=== PATIENT | male | born 1955 | race Caucasian/White ===

== ENCOUNTER 2018-08-08 03:39 | Inpatient (IN) | payer MEDICARE, MEDICAID ==
[~2018-08-08] VITALS: Ht 165.1 cm; Wt 66.7 kg
[2018-08-08] VITALS (60 sets, daily range): BP systolic 107–151; BP diastolic 53–110
[~2018-08-08 03:39] MED LIST: [UNRECOGNIZED DRUG - REMARK]
[2018-08-08 04:55] LABS: EOSINOPHILS % 1.6 % (0.0-5.0); HEMOGLOBIN. 11.7 g/dL (14.0-18.0); LYMPHOCYTES % 12.9 % (20.0-50.0); MEAN CORPUSCULAR HEMOGLOBIN 29.4 pg (28.0-32.0); MEAN CORPUSCULAR VOLUME 87.8 fL (80.0-94.0); MEAN PLATELET VOLUME 8.2 fl (7.4-10.4); MONOCYTES % 14.4 % (2.0-8.0); NEUTROPHILS % 70.1 % (40.0-76.0); PLATELET 168 x1000/uL (130-400); RED BLOOD CELL COUNT 3.99 mill/uL (4.7-6.1); RED CELL DISTRIBUTION WIDTH 17.3 % (11.6-14.6)
[2018-08-08 05:01] LABS: CHLORIDE 97 mEq/L (98-107); PROTHROMBIN TIME 10.7 sec (9.6-11.0)
[2018-08-08] MEDS ORDERED: PHYTONADIONE 10 MG in DEXTROSE 5% WATER 50 ML IV ONE (06:45)
[2018-08-08] MEDS ORDERED: NICARDIPINE 100 MG in SODIUM CHLORIDE 0.9% 60 ML IV PRN (07:15)
[2018-08-08] MEDS ORDERED: ONDANSETRON HCL 4MG/2ML INJ IV PRN ×2 (07:30→16:00)
[2018-08-08] MEDS ORDERED: ACETAMINOPHEN 325MG TABLET PO PRN (07:30)
[2018-08-08] MEDS ORDERED: LORAZEPAM 2MG/ML CPJ IV PRN (07:30)
[2018-08-08] MEDS ORDERED: POVIDONE-IODINE OINT 28.4GM TOP ONE (08:11)
[2018-08-08] MEDS ORDERED: THROMBIN (BOVINE) 5000 UNITS/VIAL TOP ONE ×2 (08:12→08:13)
[2018-08-08] MEDS ORDERED: BACITRACIN 15GM TUBE TOP ONE (08:12)
[2018-08-08] MEDS ORDERED: BACITRACIN 50,000 UNITS/VIAL ONE (08:13)
[2018-08-08] MEDS ORDERED: LIDOCAINE HCL/EPINEPHRINE 1%-EPI 1:100,000 20 ML VIAL ONE (08:13)
[2018-08-08] MEDS: AMLODIPINE 10MG TABLET PO SCH (09:00)
[2018-08-08] MEDS ORDERED: MORPHINE SULFATE 4 MG/ML CPJ (NOT FOR IM USE) IV PRN (09:15)
[2018-08-08] MEDS: NICARDIPINE 100 MG in SODIUM CHLORIDE 0.9% 60 ML IV PRN (09:15)
[2018-08-08] MEDS: DEXT 5%/LACTATED RINGERS 1,000 ML IV SCH (10:05)
[2018-08-08 10:06] LABS: T4 FREE 1.61 ng/dL (0.76-1.46)
[2018-08-08] MEDS: LEVETIRACETAM 500 MG in SODIUM CHLORIDE 0.9% 100 ML IV SCH ×2 (10:12→21:32)
[2018-08-08] MEDS ORDERED: DEXAMETHASONE 4MG/ML 1ML VIAL IV NR (10:15)
[2018-08-08] MEDS ORDERED: IPRATROPIUM/ALBUTEROL 0.5-3(2.5)MG/3ML NEB HHN PRN (11:15)
[2018-08-08] MEDS ORDERED: PANTOPRAZOLE SODIUM 40 MG/VIAL IV SCH (11:30)
[2018-08-08] MEDS: DEXAMETHASONE 4MG/ML 1ML VIAL IV SCH ×2 (12:44→17:43)
[2018-08-08] MEDS ORDERED: DEXTROSE 50% WATER 50ML SYRINGE IV PRN (15:00)
[2018-08-08] MEDS ORDERED: FENTANYL CITRATE/PF 50MCG/ML 2ML VIAL ONE (15:08)
[2018-08-08] MEDS ORDERED: PROPOFOL 200MG/20ML VIAL IV ONE (15:08)
[2018-08-08] MEDS ORDERED: ROCURONIUM BROMIDE 10MG/ML VIAL 5ML IV ONE (15:08)
[2018-08-08] MEDS ORDERED: HYDROMORPHONE HCL/PF 2MG/ML CPJ IV PRN ×2 (16:00)
[2018-08-08] MEDS ORDERED: LABETALOL HCL 20MG/4ML CARPUJECT IV PRN (16:00)
[2018-08-08 17:03] LABS: CREATINE KINASE MB FRACTION 1.5 ng/mL (0.5-3.6)
[2018-08-08] MEDS: BLOOD SUGAR DIAGNOSTIC STRIP TEST SCH ×2 (17:30→21:32)
[2018-08-08] MEDS: INSULIN LISPRO 100 UNITS/ML SUBCUT SCH ×2 (17:43→21:00)
[2018-08-08] MEDS ORDERED: ACETAMINOPHEN 500MG TABLET PO SCH (22:00)
[2018-08-08 23:11] LABS: CHLORIDE 100 mEq/L (98-107)
[2018-08-08 23:20] LABS: CREATINE KINASE 170 IU/L (39-308)
[2018-08-08 23:22] LABS: CREATINE KINASE MB FRACTION 1.5 ng/mL (0.5-3.6)
[2018-08-09] VITALS (106 sets, daily range): BP systolic 113–147; BP diastolic 49–73
[2018-08-09] MEDS: DEXT 5%/LACTATED RINGERS 1,000 ML IV SCH (01:18)
[2018-08-09] MEDS: DEXAMETHASONE 4MG/ML 1ML VIAL IV SCH ×3 (01:18→12:32)
[2018-08-09] MEDS ORDERED: FOLI-43 MT (02:42)
[2018-08-09] MEDS ORDERED: FURO40TA5 PO (02:42)
[2018-08-09] MEDS ORDERED: ASPI-1159 MT (02:42)
[2018-08-09] MEDS ORDERED: OMEP20CA10 MT (02:42)
[2018-08-09] MEDS ORDERED: CHLO50TA22 PO (02:42)
[2018-08-09] MEDS ORDERED: MINO10TA MT (02:42)
[2018-08-09] MEDS ORDERED: SEVE800T8 MT (02:42)
[2018-08-09] MEDS ORDERED: CALC667C MT (02:42)
[2018-08-09] MEDS: NICARDIPINE 100 MG in SODIUM CHLORIDE 0.9% 60 ML IV PRN (04:38)
[2018-08-09 05:23] LABS: BASOPHILS % 0.1 % (0.0-2.0); HEMATOCRIT. 35.5 % (42.0-52.0); HEMOGLOBIN. 11.8 g/dL (14.0-18.0); LYMPHOCYTES % 9.9 % (20.0-50.0); MEAN CORPUSCULAR HEMOGLOBIN 29.3 pg (28.0-32.0); MEAN CORPUSCULAR VOLUME 87.8 fL (80.0-94.0); MEAN PLATELET VOLUME 8.5 fl (7.4-10.4); MONOCYTES % 2.4 % (2.0-8.0); NEUTROPHILS % 87.6 % (40.0-76.0); PLATELET 219 x1000/uL (130-400); RED BLOOD CELL COUNT 4.04 mill/uL (4.7-6.1); RED CELL DISTRIBUTION WIDTH 17.3 % (11.6-14.6)
[2018-08-09 05:41] LABS: CREATINE KINASE 116 IU/L (39-308)
[2018-08-09 05:42] LABS: CHLORIDE 101 mEq/L (98-107)
[2018-08-09 05:43] LABS: CREATINE KINASE MB FRACTION 1.1 ng/mL (0.5-3.6)
[2018-08-09] MEDS: BLOOD SUGAR DIAGNOSTIC STRIP TEST SCH ×4 (06:18→21:00)
[2018-08-09] MEDS: INSULIN LISPRO 100 UNITS/ML SUBCUT SCH ×4 (06:30→21:32)
[2018-08-09] MEDS: AMLODIPINE 10MG TABLET PO SCH (08:33)
[2018-08-09] MEDS: PANTOPRAZOLE SODIUM 40 MG/VIAL IV SCH (08:33)
[2018-08-09] MEDS: CEFAZOLIN 1000MG PREMIX 50 ML IV SCH (08:34)
[2018-08-09] MEDS: LEVETIRACETAM 500 MG in SODIUM CHLORIDE 0.9% 100 ML IV SCH ×2 (08:48→22:31)
[2018-08-09] MEDS ORDERED: CEFAZOLIN SODIUM 1000MG/VIAL IV SCH (09:00)
[2018-08-10] VITALS (83 sets, daily range): BP systolic 108–151; BP diastolic 43–79
[2018-08-10] MEDS: NICARDIPINE 100 MG in SODIUM CHLORIDE 0.9% 60 ML IV PRN (04:49)
[2018-08-10 05:50] LABS: HEMATOCRIT. 35.9 % (42.0-52.0); HEMOGLOBIN. 11.8 g/dL (14.0-18.0); MEAN CORPUSCULAR HEMOGLOBIN 29.1 pg (28.0-32.0); MEAN CORPUSCULAR VOLUME 88.3 fL (80.0-94.0); MEAN PLATELET VOLUME 8.6 fl (7.4-10.4); PLATELET 278 x1000/uL (130-400); RED BLOOD CELL COUNT 4.07 mill/uL (4.7-6.1); RED CELL DISTRIBUTION WIDTH 17.4 % (11.6-14.6)
[2018-08-10] MEDS: BLOOD SUGAR DIAGNOSTIC STRIP TEST SCH ×4 (06:13→20:37)
[2018-08-10] MEDS: INSULIN LISPRO 100 UNITS/ML SUBCUT SCH ×4 (06:16→20:37)
[2018-08-10 06:50] LABS: PLATELET ESTIMATE NORMAL
[2018-08-10] MEDS: CEFAZOLIN 1000MG PREMIX 50 ML IV SCH (08:24)
[2018-08-10] MEDS: AMLODIPINE 10MG TABLET PO SCH (08:24)
[2018-08-10] MEDS: PANTOPRAZOLE SODIUM 40 MG/VIAL IV SCH (08:24)
[2018-08-10] MEDS: HYDROCODONE/ACETAMINOPHEN 5/325MG TABLET PO PRN (08:25)
[2018-08-10] MEDS: LOSARTAN POTASSIUM 50 MG TABLET PO SCH (11:35)
[2018-08-10] MEDS: LEVETIRACETAM 500 MG in SODIUM CHLORIDE 0.9% 100 ML IV SCH ×2 (13:41→20:37)
[2018-08-10] MEDS: DOCUSATE SODIUM 100MG CAPSULE PO SCH (16:05)
[2018-08-10] MEDS: DIPHENHYDRAMINE 25MG CAPSULE PO PRN ×2 (16:05→22:47)
[2018-08-11] VITALS (36 sets, daily range): BP systolic 100–131; BP diastolic 48–63
[2018-08-11] MEDS: HYDROCODONE/ACETAMINOPHEN 5/325MG TABLET PO PRN ×3 (04:32→17:43)
[2018-08-11 05:58] LABS: BASOPHILS % 0.2 % (0.0-2.0); HEMATOCRIT. 35.8 % (42.0-52.0); HEMOGLOBIN. 12.1 g/dL (14.0-18.0); LYMPHOCYTES % 8.1 % (20.0-50.0); MEAN CORPUSCULAR HEMOGLOBIN 29.8 pg (28.0-32.0); MEAN CORPUSCULAR VOLUME 88.2 fL (80.0-94.0); MEAN PLATELET VOLUME 7.9 fl (7.4-10.4); MONOCYTES % 10.7 % (2.0-8.0); PLATELET 293 x1000/uL (130-400); RED BLOOD CELL COUNT 4.05 mill/uL (4.7-6.1); RED CELL DISTRIBUTION WIDTH 17.3 % (11.6-14.6)
[2018-08-11] MEDS: BLOOD SUGAR DIAGNOSTIC STRIP TEST SCH ×4 (06:17→21:07)
[2018-08-11] MEDS: INSULIN LISPRO 100 UNITS/ML SUBCUT SCH ×4 (06:26→21:18)
[2018-08-11] MEDS: MORPHINE SULFATE 4 MG/ML CPJ (NOT FOR IM USE) IV PRN (06:35)
[2018-08-11] MEDS: DOCUSATE SODIUM 100MG CAPSULE PO SCH ×2 (08:41→17:27)
[2018-08-11] MEDS: AMLODIPINE 10MG TABLET PO SCH (08:41)
[2018-08-11] MEDS: LOSARTAN POTASSIUM 50 MG TABLET PO SCH (08:41)
[2018-08-11] MEDS: LEVETIRACETAM 500 MG in SODIUM CHLORIDE 0.9% 100 ML IV SCH ×2 (08:41→21:07)
[2018-08-11] MEDS: DIPHENHYDRAMINE 25MG CAPSULE PO PRN ×2 (08:41→17:43)
[2018-08-12] VITALS (39 sets, daily range): BP systolic 111–160; BP diastolic 56–88
[2018-08-12 05:34] LABS: HEMATOCRIT. 37.9 % (42.0-52.0); HEMOGLOBIN. 12.4 g/dL (14.0-18.0); MEAN CORPUSCULAR HEMOGLOBIN 29.2 pg (28.0-32.0); MEAN CORPUSCULAR VOLUME 89.1 fL (80.0-94.0); PLATELET 282 x1000/uL (130-400); RED BLOOD CELL COUNT 4.25 mill/uL (4.7-6.1); RED CELL DISTRIBUTION WIDTH 17.5 % (11.6-14.6)
[2018-08-12] MEDS: INSULIN LISPRO 100 UNITS/ML SUBCUT SCH ×4 (06:37→20:55)
[2018-08-12] MEDS: BLOOD SUGAR DIAGNOSTIC STRIP TEST SCH ×4 (06:37→20:55)
[2018-08-12 07:19] LABS: PLATELET ESTIMATE NORMAL
[2018-08-12] MEDS: AMLODIPINE 10MG TABLET PO SCH (09:09)
[2018-08-12] MEDS: DOCUSATE SODIUM 100MG CAPSULE PO SCH ×2 (09:09→17:00)
[2018-08-12] MEDS: LEVETIRACETAM 500 MG in SODIUM CHLORIDE 0.9% 100 ML IV SCH ×2 (09:09→20:43)
[2018-08-12] MEDS: LOSARTAN POTASSIUM 50 MG TABLET PO SCH (09:09)
[2018-08-12] MEDS: DIPHENHYDRAMINE 25MG CAPSULE PO PRN (22:19)
[2018-08-13] VITALS (11 sets, daily range): BP systolic 138–173; BP diastolic 61–118
[2018-08-13] MEDS: MORPHINE SULFATE 4 MG/ML CPJ (NOT FOR IM USE) IV PRN (02:07)
[2018-08-13] MEDS: CLONIDINE 0.1MG TABLET PO PRN ×2 (04:23→09:07)
[2018-08-13 05:39] LABS: HEMATOCRIT. 41.8 % (42.0-52.0); HEMOGLOBIN. 13.8 g/dL (14.0-18.0); MEAN CORPUSCULAR HEMOGLOBIN 29.4 pg (28.0-32.0); MEAN CORPUSCULAR VOLUME 88.6 fL (80.0-94.0); MEAN PLATELET VOLUME 8.1 fl (7.4-10.4); PLATELET 239 x1000/uL (130-400); RED BLOOD CELL COUNT 4.71 mill/uL (4.7-6.1); RED CELL DISTRIBUTION WIDTH 17.6 % (11.6-14.6)
[2018-08-13] MEDS: BLOOD SUGAR DIAGNOSTIC STRIP TEST SCH ×4 (07:20→21:00)
[2018-08-13] MEDS: INSULIN LISPRO 100 UNITS/ML SUBCUT SCH ×4 (07:50→23:50)
[2018-08-13] MEDS: LOSARTAN POTASSIUM 50 MG TABLET PO SCH (09:06)
[2018-08-13] MEDS: DOCUSATE SODIUM 100MG CAPSULE PO SCH ×2 (09:07→17:08)
[2018-08-13] MEDS: AMLODIPINE 10MG TABLET PO SCH (09:07)
[2018-08-13 09:11] LABS: PLATELET ESTIMATE NORMAL
[2018-08-13] MEDS: LEVETIRACETAM 500 MG in SODIUM CHLORIDE 0.9% 100 ML IV SCH ×2 (14:21→20:57)
[2018-08-14] VITALS: BP 153/67
[2018-08-14 04:00] VITALS: BP 156/55
[2018-08-14] MEDS: BLOOD SUGAR DIAGNOSTIC STRIP TEST SCH ×4 (06:24→21:00)
[2018-08-14 07:02] LABS: BASOPHILS % 0.4 % (0.0-2.0); EOSINOPHILS % 4.8 % (0.0-5.0); HEMATOCRIT. 37.3 % (42.0-52.0); HEMOGLOBIN. 12.4 g/dL (14.0-18.0); LYMPHOCYTES % 8.7 % (20.0-50.0); MEAN CORPUSCULAR HEMOGLOBIN 29.4 pg (28.0-32.0); MEAN CORPUSCULAR VOLUME 88.3 fL (80.0-94.0); MEAN PLATELET VOLUME 7.9 fl (7.4-10.4); MONOCYTES % 11.2 % (2.0-8.0); NEUTROPHILS % 74.9 % (40.0-76.0); PLATELET 267 x1000/uL (130-400); RED BLOOD CELL COUNT 4.22 mill/uL (4.7-6.1); RED CELL DISTRIBUTION WIDTH 17.5 % (11.6-14.6)
[2018-08-14] MEDS: INSULIN LISPRO 100 UNITS/ML SUBCUT SCH ×4 (07:20→21:20)
[2018-08-14 08:00] VITALS: BP 163/67
[2018-08-14] MEDS: DOCUSATE SODIUM 100MG CAPSULE PO SCH ×2 (08:43→16:35)
[2018-08-14] MEDS: CLONIDINE 0.1MG TABLET PO PRN ×2 (08:43→16:36)
[2018-08-14] MEDS: AMLODIPINE 10MG TABLET PO SCH (08:43)
[2018-08-14] MEDS: LOSARTAN POTASSIUM 50 MG TABLET PO SCH (08:43)
[2018-08-14] MEDS: LEVETIRACETAM 500 MG in SODIUM CHLORIDE 0.9% 100 ML IV SCH ×2 (09:10→20:56)
[2018-08-14] MEDS: HYDRALAZINE HCL 25MG TABLET PO SCH ×3 (09:27→21:14)
[2018-08-14 12:00] VITALS: BP 163/78
[2018-08-14 16:00] VITALS: BP 169/74
[2018-08-14 20:00] VITALS: BP 160/65
[2018-08-15] VITALS (7 sets, daily range): BP systolic 123–184; BP diastolic 60–76
[2018-08-15] MEDS: HYDRALAZINE HCL 25MG TABLET PO SCH (05:17)
[2018-08-15] MEDS: CLONIDINE 0.1MG TABLET PO PRN ×2 (06:29→14:32)
[2018-08-15 06:47] LABS: BASOPHILS % 0.5 % (0.0-2.0); EOSINOPHILS % 5.8 % (0.0-5.0); HEMATOCRIT. 38.6 % (42.0-52.0); HEMOGLOBIN. 12.9 g/dL (14.0-18.0); MEAN CORPUSCULAR HEMOGLOBIN 29.4 pg (28.0-32.0); MEAN CORPUSCULAR VOLUME 87.9 fL (80.0-94.0); MEAN PLATELET VOLUME 8.1 fl (7.4-10.4); MONOCYTES % 14.9 % (2.0-8.0); NEUTROPHILS % 69.8 % (40.0-76.0); PLATELET 243 x1000/uL (130-400); RED BLOOD CELL COUNT 4.39 mill/uL (4.7-6.1); RED CELL DISTRIBUTION WIDTH 17.7 % (11.6-14.6)
[2018-08-15] MEDS: BLOOD SUGAR DIAGNOSTIC STRIP TEST SCH ×4 (06:56→21:00)
[2018-08-15] MEDS: INSULIN LISPRO 100 UNITS/ML SUBCUT SCH ×4 (06:56→21:00)
[2018-08-15] MEDS: LEVETIRACETAM 500 MG in SODIUM CHLORIDE 0.9% 100 ML IV SCH ×2 (09:36→21:37)
[2018-08-15] MEDS: LOSARTAN POTASSIUM 50 MG TABLET PO SCH (09:36)
[2018-08-15] MEDS: DOCUSATE SODIUM 100MG CAPSULE PO SCH ×2 (09:36→16:20)
[2018-08-15] MEDS: AMLODIPINE 10MG TABLET PO SCH (09:36)
[2018-08-15] MEDS: HYDRALAZINE HCL 50MG TABLET PO SCH ×2 (14:32→22:10)
[2018-08-16] VITALS: BP 171/66
[2018-08-16] MEDS: CLONIDINE 0.1MG TABLET PO PRN (00:36)
[2018-08-16 04:00] VITALS: BP 107/68
[2018-08-16] MEDS: HYDRALAZINE HCL 50MG TABLET PO SCH (05:56)
[2018-08-16] MEDS: BLOOD SUGAR DIAGNOSTIC STRIP TEST SCH ×2 (06:27→11:35)
[2018-08-16] MEDS: INSULIN LISPRO 100 UNITS/ML SUBCUT SCH ×2 (07:50→11:36)
[2018-08-16 08:00] VITALS: BP 161/71
[2018-08-16] MEDS: LEVETIRACETAM 500 MG in SODIUM CHLORIDE 0.9% 100 ML IV SCH (08:39)
[2018-08-16] MEDS: AMLODIPINE 10MG TABLET PO SCH (08:40)
[2018-08-16] MEDS: DOCUSATE SODIUM 100MG CAPSULE PO SCH (08:40)
[2018-08-16] MEDS: LOSARTAN POTASSIUM 50 MG TABLET PO SCH (08:40)
[2018-08-16] MEDS ORDERED: LEVETIRACETAM 500MG TABLET PO SCH (11:30)
[2018-08-16 11:43] VITALS: BP 147/99
[2018-08-16 12:00] VITALS: BP 147/99
[2018-08-16] MEDS ORDERED: HYDRALAZINE HCL 50MG TABLET PO SCH (14:00)
[2018-08-16] MEDS ORDERED: ATORVASTATIN CALCIUM 10MG TABLET PO SCH (21:00)
== END 2018-08-16 16:20 | DRG 25 ==
LOC: ER 03:39 → MICUSO 06:32 → SUPCPDRO 07:23 → ENRESERV 07:32 → 6EST 08-13 06:00
PROVIDERS: ADMIT Hospitalist; ATTEND Hospitalist
PROC: 00U207Z Supplement Dura Mater with Autologous Tissue Substitute, Open Approach (ICD-10-PCS; principal; 2018-08-08)
PROC: 0NU007Z Supplement Skull with Autologous Tissue Substitute, Open Approach (ICD-10-PCS; 2018-08-08)
PROC: 00C40ZZ Extirpation of Matter from Intracranial Subdural Space, Open Approach (ICD-10-PCS; 2018-08-08)
PROC: 4A103BD Monitoring of Intracranial Pressure, Percutaneous Approach (ICD-10-PCS; 2018-08-08)
PROC: 5A1D70Z Performance of Urinary Filtration, Intermittent, Less than 6 Hours Per Day (ICD-10-PCS; 2018-08-08)
PROC: 5A1D70Z Performance of Urinary Filtration, Intermittent, Less than 6 Hours Per Day (ICD-10-PCS; 2018-08-10)
PROC: 5A1D70Z Performance of Urinary Filtration, Intermittent, Less than 6 Hours Per Day (ICD-10-PCS; 2018-08-12)
PROC: 5A1D70Z Performance of Urinary Filtration, Intermittent, Less than 6 Hours Per Day (ICD-10-PCS; 2018-08-14)
PROC: 5A1D70Z Performance of Urinary Filtration, Intermittent, Less than 6 Hours Per Day (ICD-10-PCS; 2018-08-16)
DX: I62.01 Nontraumatic acute subdural hemorrhage (principal); I50.33 Acute on chronic diastolic (congestive) heart failure; N18.6 End stage renal disease; G93.40 Encephalopathy, unspecified; I69.354 Hemiplegia and hemiparesis following cerebral infarction affecting left non-dominant side; E87.1 Hypo-osmolality and hyponatremia; G40.89 Other seizures; I13.2 Hypertensive heart and chronic kidney disease with heart failure and with stage 5 chronic kidney disease, or end stage renal disease; D64.9 Anemia, unspecified; E11.22 Type 2 diabetes mellitus with diabetic chronic kidney disease; E78.1 Pure hyperglyceridemia; I62.03 Nontraumatic chronic subdural hemorrhage; R47.01 Aphasia; R62.7 Adult failure to thrive; Z79.899 Other long term (current) drug therapy; I25.2 Old myocardial infarction; Z99.2 Dependence on renal dialysis
CPT/HCPCS: 36415; 71045; 80048; 80061; 82550; 82553; 82962; 83036; 83605; 83880; 84439; 84443; 84484; 85379; 92610; 93005; 93306; 93970; 97112; 97163; 97166; 97530; 99291; C1713; C9113; J0690; J1100; J1815; J1953; J2270; J2704; J3010; J3430; J3490; J7050; J7060; J7120; Q0163; A4315

== ENCOUNTER 2018-08-16 16:25 | Inpatient (IN) | payer MEDICARE, MEDICAID ==
[~2018-08-16] VITALS: Ht 165.1 cm; Wt 66.7 kg
[~2018-08-16 16:25] MED LIST changes: +ASPI-1159 MT; +CALC667C MT; +CHLO50TA22 PO; +FOLI-43 MT; +FURO40TA5 PO; +MINO10TA MT; +OMEP20CA10 MT; +SEVE800T8 MT
[2018-08-16] MEDS ORDERED: IPRATROPIUM/ALBUTEROL 0.5-3(2.5)MG/3ML NEB HHN PRN (18:45)
[2018-08-16] MEDS ORDERED: DEXTROSE 50% WATER 50ML SYRINGE IV PRN (18:45)
[2018-08-16] MEDS ORDERED: ACETAMINOPHEN 650MG/20.3ML UDC PO PRN (19:00)
[2018-08-16] MEDS ORDERED: ONDANSETRON HCL 4MG/2ML INJ IV PRN (19:00)
[2018-08-16 20:00] VITALS: BP 136/73
[2018-08-16] MEDS: CLONIDINE 0.1MG TABLET PO PRN (21:40)
[2018-08-16] MEDS: ATORVASTATIN CALCIUM 10MG TABLET PO SCH (21:40)
[2018-08-16] MEDS: LEVETIRACETAM 500MG TABLET PO SCH (21:40)
[2018-08-16] MEDS: BLOOD SUGAR DIAGNOSTIC STRIP TEST SCH (21:41)
[2018-08-16] MEDS: INSULIN LISPRO 100 UNITS/ML SUBCUT SCH (21:45)
[2018-08-16 22:00] VITALS: BP 165/67
[2018-08-16] MEDS ORDERED: HYDRALAZINE HCL 50MG TABLET PO SCH (22:00)
[2018-08-16] MEDS ORDERED: HYDRALAZINE HCL 25MG TABLET PO NR (22:45)
[2018-08-17] VITALS: BP 158/60
[2018-08-17] MEDS: BLOOD SUGAR DIAGNOSTIC STRIP TEST SCH ×4 (05:34→20:32)
[2018-08-17] MEDS ORDERED: HYDRALAZINE HCL 50MG TABLET PO SCH (06:00)
[2018-08-17] MEDS: CLONIDINE 0.1MG TABLET PO PRN ×2 (06:46→09:09)
[2018-08-17 08:27] VITALS: BP 196/68
[2018-08-17] MEDS: LEVETIRACETAM 500MG TABLET PO SCH ×2 (09:00→20:31)
[2018-08-17] MEDS: INSULIN LISPRO 100 UNITS/ML SUBCUT SCH ×4 (09:00→20:32)
[2018-08-17] MEDS: LOSARTAN POTASSIUM 50 MG TABLET PO SCH (09:01)
[2018-08-17] MEDS: DOCUSATE SODIUM 100MG CAPSULE PO SCH ×2 (09:01→17:11)
[2018-08-17] MEDS: AMLODIPINE 10MG TABLET PO SCH (09:02)
[2018-08-17] MEDS ORDERED: HYDRALAZINE HCL 25MG TABLET PO SCH (10:30)
[2018-08-17] MEDS ORDERED: HYDRALAZINE HCL 100MG TABLET PO SCH (10:30)
[2018-08-17] MEDS: HYDRALAZINE HCL 100MG TABLET PO SCH ×2 (14:00→20:32)
[2018-08-17 20:30] VITALS: BP 156/57
[2018-08-17] MEDS: ATORVASTATIN CALCIUM 10MG TABLET PO SCH (20:31)
[2018-08-18] MEDS: BLOOD SUGAR DIAGNOSTIC STRIP TEST SCH ×4 (05:35→20:44)
[2018-08-18] MEDS: HYDRALAZINE HCL 100MG TABLET PO SCH ×3 (05:35→20:47)
[2018-08-18 06:48] LABS: BASOPHILS % 1.3 % (0.0-2.0); EOSINOPHILS % 5.1 % (0.0-5.0); HEMOGLOBIN. 12.1 g/dL (14.0-18.0); LYMPHOCYTES % 9.2 % (20.0-50.0); MEAN CORPUSCULAR HEMOGLOBIN 29.9 pg (28.0-32.0); MEAN CORPUSCULAR VOLUME 89.4 fL (80.0-94.0); MONOCYTES % 14.2 % (2.0-8.0); NEUTROPHILS % 70.2 % (40.0-76.0); RED BLOOD CELL COUNT 4.03 mill/uL (4.7-6.1); RED CELL DISTRIBUTION WIDTH 17.7 % (11.6-14.6)
[2018-08-18 08:00] VITALS: BP 144/53
[2018-08-18] MEDS: INSULIN LISPRO 100 UNITS/ML SUBCUT SCH ×4 (09:00→20:59)
[2018-08-18 09:19] LABS: MEAN PLATELET VOLUME 8.4 fl (7.4-10.4); PLATELET 120 x1000/uL (130-400)
[2018-08-18] MEDS: DOCUSATE SODIUM 100MG CAPSULE PO SCH ×2 (10:04→17:32)
[2018-08-18] MEDS: LOSARTAN POTASSIUM 50 MG TABLET PO SCH (10:04)
[2018-08-18] MEDS: AMLODIPINE 10MG TABLET PO SCH (10:04)
[2018-08-18] MEDS: LEVETIRACETAM 500MG TABLET PO SCH ×2 (10:05→20:44)
[2018-08-18 20:00] VITALS: BP 171/69
[2018-08-18] MEDS: ATORVASTATIN CALCIUM 10MG TABLET PO SCH (20:44)
[2018-08-19] MEDS: BLOOD SUGAR DIAGNOSTIC STRIP TEST SCH ×4 (06:28→21:00)
[2018-08-19] MEDS: INSULIN LISPRO 100 UNITS/ML SUBCUT SCH ×4 (06:28→21:00)
[2018-08-19] MEDS: HYDRALAZINE HCL 100MG TABLET PO SCH ×3 (06:28→22:06)
[2018-08-19 08:00] VITALS: BP 163/69
[2018-08-19] MEDS: DOCUSATE SODIUM 100MG CAPSULE PO SCH ×2 (09:00→17:00)
[2018-08-19] MEDS: LEVETIRACETAM 500MG TABLET PO SCH ×2 (09:24→22:05)
[2018-08-19] MEDS: LOSARTAN POTASSIUM 50 MG TABLET PO SCH (09:24)
[2018-08-19] MEDS: AMLODIPINE 10MG TABLET PO SCH (09:24)
[2018-08-19 14:58] VITALS: BP 156/67
[2018-08-19 18:27] LABS: BASOPHILS % 1.3 % (0.0-2.0); EOSINOPHILS % 4.4 % (0.0-5.0); HEMOGLOBIN. 13.1 g/dL (14.0-18.0); MEAN CORPUSCULAR HEMOGLOBIN 29.8 pg (28.0-32.0); MEAN CORPUSCULAR VOLUME 88.9 fL (80.0-94.0); MEAN PLATELET VOLUME 8.1 fl (7.4-10.4); MONOCYTES % 12.3 % (2.0-8.0); PLATELET 162 x1000/uL (130-400); RED BLOOD CELL COUNT 4.39 mill/uL (4.7-6.1); RED CELL DISTRIBUTION WIDTH 17.4 % (11.6-14.6)
[2018-08-19 20:00] VITALS: BP 149/59
[2018-08-19] MEDS: ATORVASTATIN CALCIUM 10MG TABLET PO SCH (22:05)
[2018-08-20] MEDS: HYDRALAZINE HCL 100MG TABLET PO SCH ×3 (07:07→21:02)
[2018-08-20] MEDS: BLOOD SUGAR DIAGNOSTIC STRIP TEST SCH ×4 (07:09→21:50)
[2018-08-20 07:20] LABS: BASOPHILS % 1.2 % (0.0-2.0); EOSINOPHILS % 4.8 % (0.0-5.0); HEMOGLOBIN. 11.9 g/dL (14.0-18.0); LYMPHOCYTES % 10.9 % (20.0-50.0); MEAN CORPUSCULAR HEMOGLOBIN 29.2 pg (28.0-32.0); MEAN CORPUSCULAR VOLUME 88.5 fL (80.0-94.0); MEAN PLATELET VOLUME 8.3 fl (7.4-10.4); MONOCYTES % 12.4 % (2.0-8.0); NEUTROPHILS % 70.7 % (40.0-76.0); PLATELET 178 x1000/uL (130-400); RED BLOOD CELL COUNT 4.07 mill/uL (4.7-6.1); RED CELL DISTRIBUTION WIDTH 17.4 % (11.6-14.6)
[2018-08-20 08:00] VITALS: BP 164/63
[2018-08-20] MEDS: INSULIN LISPRO 100 UNITS/ML SUBCUT SCH ×4 (09:00→21:00)
[2018-08-20] MEDS: LOSARTAN POTASSIUM 50 MG TABLET PO SCH (09:23)
[2018-08-20] MEDS: DOCUSATE SODIUM 100MG CAPSULE PO SCH ×2 (09:23→17:00)
[2018-08-20] MEDS: AMLODIPINE 10MG TABLET PO SCH (09:23)
[2018-08-20] MEDS: LEVETIRACETAM 500MG TABLET PO SCH ×2 (09:23→21:02)
[2018-08-20 20:00] VITALS: BP 145/69
[2018-08-20] MEDS: ATORVASTATIN CALCIUM 10MG TABLET PO SCH (21:02)
[2018-08-21] MEDS: HYDRALAZINE HCL 100MG TABLET PO SCH ×3 (06:02→21:05)
[2018-08-21 06:35] LABS: BASOPHILS % 1.5 % (0.0-2.0); EOSINOPHILS % 4.4 % (0.0-5.0); HEMATOCRIT. 37.3 % (42.0-52.0); HEMOGLOBIN. 12.6 g/dL (14.0-18.0); LYMPHOCYTES % 7.7 % (20.0-50.0); MEAN CORPUSCULAR HEMOGLOBIN 29.5 pg (28.0-32.0); MEAN CORPUSCULAR VOLUME 87.4 fL (80.0-94.0); MEAN PLATELET VOLUME 8.2 fl (7.4-10.4); MONOCYTES % 13.9 % (2.0-8.0); NEUTROPHILS % 72.5 % (40.0-76.0); PLATELET 175 x1000/uL (130-400); RED BLOOD CELL COUNT 4.26 mill/uL (4.7-6.1); RED CELL DISTRIBUTION WIDTH 17.7 % (11.6-14.6)
[2018-08-21] MEDS: BLOOD SUGAR DIAGNOSTIC STRIP TEST SCH ×4 (06:39→21:06)
[2018-08-21] MEDS: INSULIN LISPRO 100 UNITS/ML SUBCUT SCH ×4 (06:42→21:00)
[2018-08-21 07:35] VITALS: BP 162/63
[2018-08-21] MEDS: AMLODIPINE 10MG TABLET PO SCH (08:24)
[2018-08-21] MEDS: DOCUSATE SODIUM 100MG CAPSULE PO SCH ×2 (08:25→16:22)
[2018-08-21] MEDS: LOSARTAN POTASSIUM 50 MG TABLET PO SCH (08:25)
[2018-08-21] MEDS: LEVETIRACETAM 500MG TABLET PO SCH ×2 (08:25→21:05)
[2018-08-21] MEDS: DIPHENHYDRAMINE 25MG CAPSULE PO PRN (08:50)
[2018-08-21] MEDS: NEOMY SULF/BACITRAC ZN/POLY OINT 28GM TOP SCH ×2 (13:38→21:06)
[2018-08-21 21:00] VITALS: BP 167/67
[2018-08-21] MEDS: ATORVASTATIN CALCIUM 10MG TABLET PO SCH (21:05)
[2018-08-22] MEDS: INSULIN LISPRO 100 UNITS/ML SUBCUT SCH ×4 (05:38→21:00)
[2018-08-22] MEDS: HYDRALAZINE HCL 100MG TABLET PO SCH ×3 (05:38→21:10)
[2018-08-22] MEDS: BLOOD SUGAR DIAGNOSTIC STRIP TEST SCH ×4 (05:38→21:11)
[2018-08-22 06:30] VITALS: BP 140/62
[2018-08-22 08:00] VITALS: BP 154/59
[2018-08-22] MEDS: LOSARTAN POTASSIUM 50 MG TABLET PO SCH (08:51)
[2018-08-22] MEDS: DOCUSATE SODIUM 100MG CAPSULE PO SCH ×2 (08:51→16:36)
[2018-08-22] MEDS: AMLODIPINE 10MG TABLET PO SCH (08:52)
[2018-08-22] MEDS: LEVETIRACETAM 500MG TABLET PO SCH ×2 (08:52→21:10)
[2018-08-22] MEDS: NEOMY SULF/BACITRAC ZN/POLY OINT 28GM TOP SCH ×2 (11:59→21:11)
[2018-08-22 20:00] VITALS: BP 122/71
[2018-08-22] MEDS: ATORVASTATIN CALCIUM 10MG TABLET PO SCH (21:09)
[2018-08-23] MEDS: HYDRALAZINE HCL 100MG TABLET PO SCH ×3 (05:35→21:03)
[2018-08-23] MEDS: BLOOD SUGAR DIAGNOSTIC STRIP TEST SCH ×4 (05:35→21:03)
[2018-08-23] MEDS: INSULIN LISPRO 100 UNITS/ML SUBCUT SCH ×4 (05:40→21:00)
[2018-08-23 06:56] LABS: BASOPHILS % 2.1 % (0.0-2.0); EOSINOPHILS % 4.9 % (0.0-5.0); HEMATOCRIT. 35.7 % (42.0-52.0); HEMOGLOBIN. 11.8 g/dL (14.0-18.0); LYMPHOCYTES % 10.7 % (20.0-50.0); MEAN CORPUSCULAR HEMOGLOBIN 29.2 pg (28.0-32.0); MEAN CORPUSCULAR VOLUME 88.2 fL (80.0-94.0); MEAN PLATELET VOLUME 7.9 fl (7.4-10.4); MONOCYTES % 9.2 % (2.0-8.0); NEUTROPHILS % 73.1 % (40.0-76.0); PLATELET 156 x1000/uL (130-400); RED BLOOD CELL COUNT 4.05 mill/uL (4.7-6.1); RED CELL DISTRIBUTION WIDTH 17.1 % (11.6-14.6)
[2018-08-23 08:00] VITALS: BP 166/57
[2018-08-23] MEDS: DOCUSATE SODIUM 100MG CAPSULE PO SCH ×2 (08:34→16:52)
[2018-08-23] MEDS: NEOMY SULF/BACITRAC ZN/POLY OINT 28GM TOP SCH ×2 (08:34→21:06)
[2018-08-23] MEDS: LEVETIRACETAM 500MG TABLET PO SCH ×2 (08:34→21:02)
[2018-08-23] MEDS: AMLODIPINE 10MG TABLET PO SCH (09:34)
[2018-08-23] MEDS: LOSARTAN POTASSIUM 50 MG TABLET PO SCH (09:34)
[2018-08-23 20:00] VITALS: BP 139/67
[2018-08-23] MEDS: ATORVASTATIN CALCIUM 10MG TABLET PO SCH (21:03)
[2018-08-23] MEDS ORDERED: BISACODYL 10MG SUPP PR PRN (22:00)
[2018-08-23] MEDS: BISACODYL 5MG TABLET PO PRN (22:19)
[2018-08-24] MEDS: HYDRALAZINE HCL 100MG TABLET PO SCH ×3 (05:31→21:50)
[2018-08-24] MEDS: BLOOD SUGAR DIAGNOSTIC STRIP TEST SCH ×4 (05:31→21:51)
[2018-08-24] MEDS: INSULIN LISPRO 100 UNITS/ML SUBCUT SCH ×4 (05:40→21:00)
[2018-08-24 06:36] LABS: HEMATOCRIT. 36.9 % (42.0-52.0); HEMOGLOBIN. 12.2 g/dL (14.0-18.0); MEAN CORPUSCULAR HEMOGLOBIN 29.1 pg (28.0-32.0); MEAN CORPUSCULAR VOLUME 88.2 fL (80.0-94.0); MEAN PLATELET VOLUME 8.1 fl (7.4-10.4); PLATELET 152 x1000/uL (130-400); RED BLOOD CELL COUNT 4.19 mill/uL (4.7-6.1); RED CELL DISTRIBUTION WIDTH 17.4 % (11.6-14.6)
[2018-08-24 08:47] VITALS: BP 168/63
[2018-08-24] MEDS: DOCUSATE SODIUM 100MG CAPSULE PO SCH ×2 (08:59→16:49)
[2018-08-24] MEDS: LEVETIRACETAM 500MG TABLET PO SCH ×2 (08:59→21:50)
[2018-08-24] MEDS: AMLODIPINE 10MG TABLET PO SCH (08:59)
[2018-08-24] MEDS: NEOMY SULF/BACITRAC ZN/POLY OINT 28GM TOP SCH ×2 (08:59→21:52)
[2018-08-24] MEDS: LOSARTAN POTASSIUM 50 MG TABLET PO SCH (08:59)
[2018-08-24 17:55] LABS: PLATELET ESTIMATE NORMAL
[2018-08-24 20:00] VITALS: BP 148/67
[2018-08-24] MEDS: ATORVASTATIN CALCIUM 10MG TABLET PO SCH (21:50)
[2018-08-25] MEDS: HYDRALAZINE HCL 100MG TABLET PO SCH ×3 (05:48→21:46)
[2018-08-25] MEDS: BLOOD SUGAR DIAGNOSTIC STRIP TEST SCH ×4 (05:49→21:15)
[2018-08-25 06:46] LABS: BASOPHILS % 1.2 % (0.0-2.0); EOSINOPHILS % 5.1 % (0.0-5.0); HEMATOCRIT. 39.8 % (42.0-52.0); HEMOGLOBIN. 13.3 g/dL (14.0-18.0); LYMPHOCYTES % 12.2 % (20.0-50.0); MEAN CORPUSCULAR HEMOGLOBIN 29.5 pg (28.0-32.0); MEAN PLATELET VOLUME 8.1 fl (7.4-10.4); MONOCYTES % 11.5 % (2.0-8.0); PLATELET 146 x1000/uL (130-400); RED BLOOD CELL COUNT 4.52 mill/uL (4.7-6.1); RED CELL DISTRIBUTION WIDTH 17.1 % (11.6-14.6)
[2018-08-25] MEDS: INSULIN LISPRO 100 UNITS/ML SUBCUT SCH ×4 (07:57→21:00)
[2018-08-25] MEDS: LOSARTAN POTASSIUM 50 MG TABLET PO SCH (08:15)
[2018-08-25] MEDS: LEVETIRACETAM 500MG TABLET PO SCH ×2 (08:15→20:41)
[2018-08-25] MEDS: AMLODIPINE 10MG TABLET PO SCH (08:16)
[2018-08-25] MEDS: DOCUSATE SODIUM 100MG CAPSULE PO SCH ×2 (08:16→16:44)
[2018-08-25 08:23] VITALS: BP 172/76
[2018-08-25] MEDS: NEOMY SULF/BACITRAC ZN/POLY OINT 28GM TOP SCH ×2 (09:00→20:41)
[2018-08-25 10:00] VITALS: BP 138/68
[2018-08-25 20:00] VITALS: BP 181/67
[2018-08-25] MEDS: ATORVASTATIN CALCIUM 10MG TABLET PO SCH (20:40)
[2018-08-25] MEDS: CLONIDINE 0.1MG TABLET PO PRN (20:40)
[2018-08-25 21:46] VITALS: BP 156/48
[2018-08-26] MEDS: HYDRALAZINE HCL 100MG TABLET PO SCH ×4 (05:31→23:12)
[2018-08-26] MEDS: BLOOD SUGAR DIAGNOSTIC STRIP TEST SCH ×4 (06:07→21:00)
[2018-08-26] MEDS: INSULIN LISPRO 100 UNITS/ML SUBCUT SCH ×4 (06:31→21:00)
[2018-08-26 08:00] VITALS: BP 149/59
[2018-08-26] MEDS: LEVETIRACETAM 500MG TABLET PO SCH ×2 (08:46→23:12)
[2018-08-26] MEDS: LOSARTAN POTASSIUM 50 MG TABLET PO SCH (08:46)
[2018-08-26] MEDS: DOCUSATE SODIUM 100MG CAPSULE PO SCH ×2 (08:46→17:25)
[2018-08-26] MEDS: NEOMY SULF/BACITRAC ZN/POLY OINT 28GM TOP SCH ×2 (08:46→21:00)
[2018-08-26] MEDS: AMLODIPINE 10MG TABLET PO SCH (08:46)
[2018-08-26 20:00] VITALS: BP 149/44
[2018-08-26] MEDS: ATORVASTATIN CALCIUM 10MG TABLET PO SCH (23:12)
[2018-08-27 06:24] LABS: BASOPHILS % 1.8 % (0.0-2.0); EOSINOPHILS % 6.9 % (0.0-5.0); HEMATOCRIT. 35.3 % (42.0-52.0); HEMOGLOBIN. 11.8 g/dL (14.0-18.0); MEAN PLATELET VOLUME 7.9 fl (7.4-10.4); MONOCYTES % 11.5 % (2.0-8.0); NEUTROPHILS % 67.8 % (40.0-76.0); PLATELET 154 x1000/uL (130-400); RED BLOOD CELL COUNT 4.06 mill/uL (4.7-6.1)
[2018-08-27] MEDS: HYDRALAZINE HCL 100MG TABLET PO SCH ×3 (06:25→22:31)
[2018-08-27] MEDS: BLOOD SUGAR DIAGNOSTIC STRIP TEST SCH ×4 (06:30→21:00)
[2018-08-27 08:03] VITALS: BP 164/60
[2018-08-27] MEDS: INSULIN LISPRO 100 UNITS/ML SUBCUT SCH ×4 (09:00→21:00)
[2018-08-27] MEDS: NEOMY SULF/BACITRAC ZN/POLY OINT 28GM TOP SCH ×2 (09:00→23:01)
[2018-08-27] MEDS: LEVETIRACETAM 500MG TABLET PO SCH ×2 (09:12→22:30)
[2018-08-27] MEDS: LOSARTAN POTASSIUM 50 MG TABLET PO SCH (09:12)
[2018-08-27] MEDS: DOCUSATE SODIUM 100MG CAPSULE PO SCH ×2 (09:12→16:36)
[2018-08-27] MEDS: BISACODYL 5MG TABLET PO PRN (09:12)
[2018-08-27] MEDS: AMLODIPINE 10MG TABLET PO SCH (09:13)
[2018-08-27 20:00] VITALS: BP 149/67
[2018-08-27] MEDS: ATORVASTATIN CALCIUM 10MG TABLET PO SCH (22:30)
[2018-08-28] MEDS: HYDRALAZINE HCL 100MG TABLET PO SCH ×3 (06:36→21:36)
[2018-08-28] MEDS: BLOOD SUGAR DIAGNOSTIC STRIP TEST SCH ×4 (07:28→21:00)
[2018-08-28 08:10] VITALS: BP 149/61
[2018-08-28] MEDS: INSULIN LISPRO 100 UNITS/ML SUBCUT SCH ×4 (09:00→21:00)
[2018-08-28] MEDS: DOCUSATE SODIUM 100MG CAPSULE PO SCH ×2 (09:00→16:09)
[2018-08-28] MEDS: LEVETIRACETAM 500MG TABLET PO SCH ×2 (09:04→21:36)
[2018-08-28] MEDS: AMLODIPINE 10MG TABLET PO SCH (09:04)
[2018-08-28] MEDS: LOSARTAN POTASSIUM 50 MG TABLET PO SCH (09:04)
[2018-08-28] MEDS: NEOMY SULF/BACITRAC ZN/POLY OINT 28GM TOP SCH ×2 (09:05→21:36)
[2018-08-28] MEDS: DIPHENHYDRAMINE 25MG CAPSULE PO PRN (14:54)
[2018-08-28 20:00] VITALS: BP 152/57
[2018-08-28] MEDS: ATORVASTATIN CALCIUM 10MG TABLET PO SCH (21:36)
[2018-08-29] MEDS: HYDRALAZINE HCL 100MG TABLET PO SCH ×3 (06:17→20:29)
[2018-08-29] MEDS: BLOOD SUGAR DIAGNOSTIC STRIP TEST SCH ×4 (06:30→20:31)
[2018-08-29] MEDS: INSULIN LISPRO 100 UNITS/ML SUBCUT SCH ×4 (07:50→20:31)
[2018-08-29 08:03] VITALS: BP 129/38
[2018-08-29] MEDS: LEVETIRACETAM 500MG TABLET PO SCH ×2 (08:14→20:29)
[2018-08-29] MEDS: DOCUSATE SODIUM 100MG CAPSULE PO SCH ×2 (08:14→16:18)
[2018-08-29] MEDS: LOSARTAN POTASSIUM 50 MG TABLET PO SCH (08:15)
[2018-08-29] MEDS: AMLODIPINE 10MG TABLET PO SCH (08:15)
[2018-08-29] MEDS: NEOMY SULF/BACITRAC ZN/POLY OINT 28GM TOP SCH ×2 (08:16→20:35)
[2018-08-29 20:00] VITALS: BP 170/74
[2018-08-29] MEDS: ATORVASTATIN CALCIUM 10MG TABLET PO SCH (20:29)
[2018-08-30] MEDS: CLONIDINE 0.1MG TABLET PO PRN (05:30)
[2018-08-30] MEDS: HYDRALAZINE HCL 100MG TABLET PO SCH ×2 (05:30→13:26)
[2018-08-30] MEDS: BLOOD SUGAR DIAGNOSTIC STRIP TEST SCH ×4 (05:30→21:00)
[2018-08-30 06:09] LABS: HEMATOCRIT. 34.9 % (42.0-52.0); HEMOGLOBIN. 11.5 g/dL (14.0-18.0); MEAN CORPUSCULAR HEMOGLOBIN 28.4 pg (28.0-32.0); MEAN CORPUSCULAR VOLUME 86.5 fL (80.0-94.0); MEAN PLATELET VOLUME 8.1 fl (7.4-10.4); PLATELET 175 x1000/uL (130-400); RED BLOOD CELL COUNT 4.03 mill/uL (4.7-6.1); RED CELL DISTRIBUTION WIDTH 17.1 % (11.6-14.6)
[2018-08-30 08:00] VITALS: BP 169/62
[2018-08-30] MEDS: INSULIN LISPRO 100 UNITS/ML SUBCUT SCH ×4 (09:00→21:00)
[2018-08-30] MEDS: AMLODIPINE 10MG TABLET PO SCH ×2 (09:03→09:05)
[2018-08-30] MEDS: DOCUSATE SODIUM 100MG CAPSULE PO SCH ×2 (09:04→17:06)
[2018-08-30] MEDS: LEVETIRACETAM 500MG TABLET PO SCH ×2 (09:04→21:29)
[2018-08-30] MEDS: NEOMY SULF/BACITRAC ZN/POLY OINT 28GM TOP SCH (09:05)
[2018-08-30] MEDS: LOSARTAN POTASSIUM 50 MG TABLET PO SCH (10:15)
[2018-08-30 13:52] LABS: PLATELET ESTIMATE NORMAL
[2018-08-30 20:00] VITALS: BP 150/61
[2018-08-30] MEDS: ATORVASTATIN CALCIUM 10MG TABLET PO SCH (21:29)
[2018-08-31] MEDS: HYDRALAZINE HCL 100MG TABLET PO SCH ×4 (01:22→21:47)
[2018-08-31] MEDS: NEOMY SULF/BACITRAC ZN/POLY OINT 28GM TOP SCH ×3 (01:22→20:20)
[2018-08-31] MEDS: DIPHENHYDRAMINE 25MG CAPSULE PO PRN (05:33)
[2018-08-31] MEDS: BLOOD SUGAR DIAGNOSTIC STRIP TEST SCH ×4 (06:00→21:00)
[2018-08-31 06:05] LABS: HEMATOCRIT. 34.7 % (42.0-52.0); HEMOGLOBIN. 11.3 g/dL (14.0-18.0); MEAN CORPUSCULAR HEMOGLOBIN 28.4 pg (28.0-32.0); MEAN CORPUSCULAR VOLUME 86.9 fL (80.0-94.0); MEAN PLATELET VOLUME 8.1 fl (7.4-10.4); PLATELET 171 x1000/uL (130-400); RED BLOOD CELL COUNT 3.99 mill/uL (4.7-6.1); RED CELL DISTRIBUTION WIDTH 16.9 % (11.6-14.6)
[2018-08-31] MEDS: INSULIN LISPRO 100 UNITS/ML SUBCUT SCH ×4 (08:08→21:00)
[2018-08-31 08:36] VITALS: BP 130/47
[2018-08-31] MEDS: DOCUSATE SODIUM 100MG CAPSULE PO SCH ×2 (09:04→17:36)
[2018-08-31] MEDS: LOSARTAN POTASSIUM 50 MG TABLET PO SCH (09:04)
[2018-08-31] MEDS: LEVETIRACETAM 500MG TABLET PO SCH ×2 (09:04→20:10)
[2018-08-31 10:14] LABS: PLATELET ESTIMATE NORMAL
[2018-08-31 20:00] VITALS: BP 172/70
[2018-08-31] MEDS: ATORVASTATIN CALCIUM 10MG TABLET PO SCH (20:15)
[2018-08-31] MEDS: CLONIDINE 0.1MG TABLET PO PRN (20:15)
[2018-09-01 06:09] LABS: HEMATOCRIT. 35.5 % (42.0-52.0); HEMOGLOBIN. 11.4 g/dL (14.0-18.0); MEAN CORPUSCULAR HEMOGLOBIN 28.1 pg (28.0-32.0); MEAN CORPUSCULAR VOLUME 87.7 fL (80.0-94.0); MEAN PLATELET VOLUME 7.9 fl (7.4-10.4); PLATELET 187 x1000/uL (130-400); RED BLOOD CELL COUNT 4.05 mill/uL (4.7-6.1)
[2018-09-01] MEDS: HYDRALAZINE HCL 100MG TABLET PO SCH ×3 (06:11→22:54)
[2018-09-01] MEDS: BLOOD SUGAR DIAGNOSTIC STRIP TEST SCH ×4 (06:12→21:05)
[2018-09-01 08:23] VITALS: BP 148/60
[2018-09-01] MEDS: LOSARTAN POTASSIUM 50 MG TABLET PO SCH (09:00)
[2018-09-01] MEDS: AMLODIPINE 10MG TABLET PO SCH (09:00)
[2018-09-01] MEDS: INSULIN LISPRO 100 UNITS/ML SUBCUT SCH ×4 (09:00→21:00)
[2018-09-01] MEDS: LEVETIRACETAM 500MG TABLET PO SCH ×2 (09:15→22:54)
[2018-09-01] MEDS: DOCUSATE SODIUM 100MG CAPSULE PO SCH ×2 (09:15→17:24)
[2018-09-01] MEDS: NEOMY SULF/BACITRAC ZN/POLY OINT 28GM TOP SCH ×2 (09:16→22:54)
[2018-09-01 10:36] LABS: PLATELET ESTIMATE NORMAL
[2018-09-01 20:00] VITALS: BP 155/80
[2018-09-01] MEDS: ATORVASTATIN CALCIUM 10MG TABLET PO SCH (22:52)
[2018-09-01 23:50] VITALS: BP 151/55
[2018-09-02] MEDS: INSULIN LISPRO 100 UNITS/ML SUBCUT SCH ×2 (05:45→11:53)
[2018-09-02] MEDS: HYDRALAZINE HCL 100MG TABLET PO SCH ×2 (05:45→13:29)
[2018-09-02] MEDS: BLOOD SUGAR DIAGNOSTIC STRIP TEST SCH ×2 (05:45→11:15)
[2018-09-02 07:42] VITALS: BP 141/66
[2018-09-02] MEDS: DOCUSATE SODIUM 100MG CAPSULE PO SCH (08:30)
[2018-09-02] MEDS: AMLODIPINE 10MG TABLET PO SCH (08:30)
[2018-09-02] MEDS: LOSARTAN POTASSIUM 50 MG TABLET PO SCH (08:30)
[2018-09-02] MEDS: LEVETIRACETAM 500MG TABLET PO SCH (08:30)
[2018-09-02] MEDS: NEOMY SULF/BACITRAC ZN/POLY OINT 28GM TOP SCH (08:30)
[2018-09-02 10:25] VITALS: BP 141/66
== END 2018-09-02 15:20 | disposition home health service (06) | DRG 56 ==
PROVIDERS: ADMIT Psychiatry & Neurology Neurology; ATTEND Hospitalist
PROC: 5A1D70Z Performance of Urinary Filtration, Intermittent, Less than 6 Hours Per Day (ICD-10-PCS; principal; 2018-08-19)
PROC: 5A1D70Z Performance of Urinary Filtration, Intermittent, Less than 6 Hours Per Day (ICD-10-PCS; 2018-08-20)
PROC: 5A1D70Z Performance of Urinary Filtration, Intermittent, Less than 6 Hours Per Day (ICD-10-PCS; 2018-08-23)
PROC: 5A1D70Z Performance of Urinary Filtration, Intermittent, Less than 6 Hours Per Day (ICD-10-PCS; 2018-08-25)
PROC: 5A1D70Z Performance of Urinary Filtration, Intermittent, Less than 6 Hours Per Day (ICD-10-PCS; 2018-08-27)
PROC: 5A1D70Z Performance of Urinary Filtration, Intermittent, Less than 6 Hours Per Day (ICD-10-PCS; 2018-08-30)
PROC: 5A1D70Z Performance of Urinary Filtration, Intermittent, Less than 6 Hours Per Day (ICD-10-PCS; 2018-09-01)
DX: I69.354 Hemiplegia and hemiparesis following cerebral infarction affecting left non-dominant side (principal); I62.02 Nontraumatic subacute subdural hemorrhage; N18.6 End stage renal disease; G93.40 Encephalopathy, unspecified; I13.2 Hypertensive heart and chronic kidney disease with heart failure and with stage 5 chronic kidney disease, or end stage renal disease; J98.11 Atelectasis; E11.22 Type 2 diabetes mellitus with diabetic chronic kidney disease; R32 Unspecified urinary incontinence; R15.9 Full incontinence of feces; G40.909 Epilepsy, unspecified, not intractable, without status epilepticus; D64.9 Anemia, unspecified; E78.1 Pure hyperglyceridemia; F01.50 Vascular dementia, unspecified severity, without behavioral disturbance, psychotic disturbance, mood disturbance, and anxiety; F41.9 Anxiety disorder, unspecified; I50.9 Heart failure, unspecified; Z99.2 Dependence on renal dialysis; Z79.899 Other long term (current) drug therapy; Z79.82 Long term (current) use of aspirin
CPT/HCPCS: 36415; 80048; 80051; 82962; 83036; 92523; 92610; 97110; 97112; 97116; 97163; 97167; 97530; 97535; A6261; J1815; J7050; Q0163

== ENCOUNTER 2020-04-25 07:24 | Inpatient (IN) | payer MEDICARE, MEDICAID ==
[~2020-04-25] VITALS: Ht 162.6 cm; Wt 70.3 kg
[~2020-04-25 07:24] MED LIST changes: -ASPI-1159 MT; -FURO40TA5 PO; -MINO10TA MT; -OMEP20CA10 MT; +OMEP20CA14 MT; -[UNRECOGNIZED DRUG - REMARK]
[2020-04-25 09:22] LABS: HEMATOCRIT. 25.8 % (42.0-52.0); HEMOGLOBIN. 8.6 g/dL (14.0-18.0); MEAN CORPUSCULAR HEMOGLOBIN 32.3 pg (28.0-32.0); MEAN PLATELET VOLUME 8.6 fl (7.4-10.4); PLATELET 122 x1000/uL (130-400); RED BLOOD CELL COUNT 2.66 mill/uL (4.7-6.1); RED CELL DISTRIBUTION WIDTH 17.2 % (11.6-14.6)
[2020-04-25 09:27] LABS: CHLORIDE 107 mEq/L (98-107)
[2020-04-25 09:33] LABS: ETHANOL BLOOD < 10 mg/dL
[2020-04-25] MEDS ORDERED: INSULIN REGULAR (HUMULIN R) 300UNITS/3ML VIAL IV ONE (10:00)
[2020-04-25] MEDS ORDERED: SODIUM BICARBONATE 8.4% 1 MEQ/ML 50ML SYR IV ONE (10:00)
[2020-04-25] MEDS ORDERED: CALCIUM CHLORIDE 1GM/10ML SYR IV ONE (10:00)
[2020-04-25] MEDS ORDERED: SODIUM POLYSTYRENE SULFONATE 15 G/60 ML BOT PO ONE (10:00)
[2020-04-25] MEDS ORDERED: ALBUTEROL (0.083%) 2.5MG/3ML NEB HHN ONE (10:00)
[2020-04-25] MEDS ORDERED: DEXTROSE 50% WATER 50ML SYRINGE IV ONE (10:00)
[2020-04-25 10:11] LABS: PLATELET ESTIMATE SLIGHTLY DECREASED
[2020-04-25] MEDS ORDERED: LORAZEPAM 2MG/ML CPJ IV PRN (12:30)
[2020-04-25] MEDS ORDERED: DIPHENHYDRAMINE 50MG/ML VIAL IV PRN (12:30)
[2020-04-25] MEDS ORDERED: ENOXAPARIN 40MG/0.4ML SYR SUBCUT SCH (12:30)
[2020-04-25] MEDS ORDERED: DOCUSATE SODIUM 100MG CAPSULE PO PRN (12:30)
[2020-04-25] MEDS ORDERED: GUAIFENESIN 200MG/10ML SUGAR FREE UDC PO PRN (12:30)
[2020-04-25] MEDS ORDERED: MAGNESIUM/ALUMINUM HYDROXIDE/SIMETHICONE 30ML UDC PO PRN (12:30)
[2020-04-25] MEDS ORDERED: HYDROCODONE/ACETAMINOPHEN 5/325MG TABLET PO PRN (12:30)
[2020-04-25] MEDS ORDERED: ONDANSETRON HCL 4MG/2ML INJ IV PRN (12:30)
[2020-04-25] MEDS: AMLODIPINE 10MG TABLET PO SCH (13:00)
[2020-04-25 13:01] LABS: BG BASE EXCESS -9.3 mmol/L (-2.0-2.0); BG CARBOXYHEMOGLOBIN 0.8 % (0.5-1.5); BG DEOXYHEMOGLOBIN 5.2 % (0.0-5.0); BG HCO3 ACT 15.6 mmol/L (22.0-26.0); BG METHEMOGLOBIN 0.4 % (0.0-1.5); BG OXYGEN SATURATION 94.7 % (92.0-98.5); BG OXYHEMOGLOBIN 93.6 % (94.0-97.0); BG PH 7.333 (7.350-7.450); BG PO2 84.1 mmHg (75.0-100.0); BG SAMPLE SITE RIGHT RADIAL; BG TOTAL HEMOGLOBIN 8.2 g/dL (12.0-18.0); BG VENT MODE ROOM AIR
[2020-04-26 05:21] LABS: HEMATOCRIT. 27.2 % (42.0-52.0); HEMOGLOBIN. 8.9 g/dL (14.0-18.0); MEAN CORPUSCULAR HEMOGLOBIN 32.4 pg (28.0-32.0); MEAN CORPUSCULAR VOLUME 99.2 fL (80.0-94.0); MEAN PLATELET VOLUME 8.8 fl (7.4-10.4); PLATELET 125 x1000/uL (130-400); RED BLOOD CELL COUNT 2.75 mill/uL (4.7-6.1); RED CELL DISTRIBUTION WIDTH 17.7 % (11.6-14.6)
[2020-04-26 05:33] LABS: CHLORIDE 109 mEq/L (98-107)
[2020-04-26 05:42] LABS: LDL CHOLESTEROL 57 mg/dL (5-100)
[2020-04-26 06:38] LABS: HDL CHOLESTEROL 62 mg/dL (40-59)
[2020-04-26] MEDS ORDERED: ALBUTEROL (0.083%) 2.5MG/3ML NEB HHN ONE (06:45)
[2020-04-26] MEDS ORDERED: DEXTROSE 50% WATER 50ML SYRINGE IV ONE (06:45)
[2020-04-26] MEDS ORDERED: SODIUM BICARBONATE 8.4% 1 MEQ/ML 50ML SYR IV ONE (06:45)
[2020-04-26] MEDS ORDERED: SODIUM POLYSTYRENE SULFONATE 15 G/60 ML BOT PO ONE (06:45)
[2020-04-26] MEDS ORDERED: CALCIUM CHLORIDE 1GM/10ML SYR IV ONE (06:45)
[2020-04-26 08:55] VITALS: BP 160/92
[2020-04-26] MEDS: ENOXAPARIN 30MG/0.3ML SYR SUBCUT SCH (09:00)
[2020-04-26] MEDS: AMLODIPINE 10MG TABLET PO SCH (09:00)
[2020-04-26] MEDS ORDERED: DEXTROSE 50% WATER 50ML SYRINGE IV PRN (11:00)
[2020-04-26 12:00] VITALS: BP 122/57
[2020-04-26] MEDS: BLOOD SUGAR DIAGNOSTIC STRIP TEST SCH ×3 (12:09→20:52)
[2020-04-26] MEDS: INSULIN LISPRO 100 UNITS/ML SUBCUT SCH ×3 (12:09→20:52)
[2020-04-26 15:35] LABS: PLATELET ESTIMATE SLIGHTLY DECREASED
[2020-04-26 16:00] VITALS: BP 154/67
[2020-04-26] MEDS: CLONIDINE 0.1MG TABLET PO PRN (18:11)
[2020-04-26] MEDS: ACETAMINOPHEN 325MG TABLET PO PRN (18:11)
[2020-04-26 19:18] VITALS: BP 166/71
[2020-04-27] VITALS: BP 156/67
[2020-04-27 04:00] VITALS: BP 156/67
[2020-04-27] MEDS: BLOOD SUGAR DIAGNOSTIC STRIP TEST SCH ×4 (07:36→21:00)
[2020-04-27] MEDS: INSULIN LISPRO 100 UNITS/ML SUBCUT SCH ×4 (07:36→21:00)
[2020-04-27 08:00] VITALS: BP 121/70
[2020-04-27] MEDS: ENOXAPARIN 30MG/0.3ML SYR SUBCUT SCH (09:00)
[2020-04-27 09:13] LABS: HEMATOCRIT. 27.6 % (42.0-52.0); HEMOGLOBIN. 9.1 g/dL (14.0-18.0); MEAN CORPUSCULAR HEMOGLOBIN 32.2 pg (28.0-32.0); MEAN CORPUSCULAR VOLUME 97.8 fL (80.0-94.0); MEAN PLATELET VOLUME 8.8 fl (7.4-10.4); PLATELET 125 x1000/uL (130-400); RED BLOOD CELL COUNT 2.82 mill/uL (4.7-6.1); RED CELL DISTRIBUTION WIDTH 17.1 % (11.6-14.6)
[2020-04-27] MEDS: CLONIDINE 0.1MG TABLET PO PRN ×2 (09:27→17:26)
[2020-04-27] MEDS: AMLODIPINE 10MG TABLET PO SCH (09:27)
[2020-04-27] MEDS ORDERED: HYDRALAZINE 20MG/ML VIAL IV PRN (10:45)
[2020-04-27 12:00] VITALS: BP 161/69
[2020-04-27 16:00] VITALS: BP 168/68
[2020-04-27 16:48] LABS: PLATELET ESTIMATE SLIGHTLY DECREASED
[2020-04-28] VITALS: BP 130/67
[2020-04-28 04:00] VITALS: BP 164/74
[2020-04-28] MEDS: INSULIN LISPRO 100 UNITS/ML SUBCUT SCH ×4 (07:37→21:00)
[2020-04-28] MEDS: BLOOD SUGAR DIAGNOSTIC STRIP TEST SCH ×4 (07:37→21:18)
[2020-04-28 07:40] LABS: BASOPHILS % 0.5 % (0.0-2.0); EOSINOPHILS % 0.1 % (0.0-5.0); HEMATOCRIT. 26.9 % (42.0-52.0); HEMOGLOBIN. 8.9 g/dL (14.0-18.0); LYMPHOCYTES % 11.4 % (20.0-50.0); MEAN CORPUSCULAR HEMOGLOBIN 32.2 pg (28.0-32.0); MEAN CORPUSCULAR VOLUME 97.1 fL (80.0-94.0); MEAN PLATELET VOLUME 8.8 fl (7.4-10.4); MONOCYTES % 12.6 % (2.0-8.0); NEUTROPHILS % 75.4 % (40.0-76.0); PLATELET 117 x1000/uL (130-400); RED BLOOD CELL COUNT 2.77 mill/uL (4.7-6.1); RED CELL DISTRIBUTION WIDTH 16.8 % (11.6-14.6)
[2020-04-28 08:00] VITALS: BP 169/69
[2020-04-28] MEDS: ENOXAPARIN 30MG/0.3ML SYR SUBCUT SCH (08:40)
[2020-04-28] MEDS: AMLODIPINE 10MG TABLET PO SCH (08:44)
[2020-04-28] MEDS: CLONIDINE 0.1MG TABLET PO PRN (08:44)
[2020-04-28 12:00] VITALS: BP 144/60
[2020-04-28 14:43] LABS: HEPATITIS B SURFACE AB 35.3 mIU/mL
[2020-04-28 14:53] LABS: HEPATITIS B SURFACE ANTIGEN NEGATIVE
[2020-04-28 15:23] LABS: HEPATITIS A AB IGM NEGATIVE (NEGATIVE)
[2020-04-28 16:00] VITALS: BP 146/67
[2020-04-28 20:00] VITALS: BP 144/67
[2020-04-29] MEDS: BLOOD SUGAR DIAGNOSTIC STRIP TEST SCH ×4 (07:49→21:00)
[2020-04-29] MEDS: INSULIN LISPRO 100 UNITS/ML SUBCUT SCH ×4 (07:50→21:00)
[2020-04-29 08:00] VITALS: BP 175/73
[2020-04-29 08:47] LABS: BASOPHILS % 0.3 % (0.0-2.0); EOSINOPHILS % 0.2 % (0.0-5.0); HEMATOCRIT. 28.5 % (42.0-52.0); HEMOGLOBIN. 9.6 g/dL (14.0-18.0); LYMPHOCYTES % 9.2 % (20.0-50.0); MEAN CORPUSCULAR HEMOGLOBIN 32.6 pg (28.0-32.0); MEAN CORPUSCULAR VOLUME 97.3 fL (80.0-94.0); MEAN PLATELET VOLUME 9.2 fl (7.4-10.4); MONOCYTES % 8.2 % (2.0-8.0); NEUTROPHILS % 82.1 % (40.0-76.0); PLATELET 140 x1000/uL (130-400); RED BLOOD CELL COUNT 2.93 mill/uL (4.7-6.1); RED CELL DISTRIBUTION WIDTH 16.7 % (11.6-14.6)
[2020-04-29] MEDS: AMLODIPINE 10MG TABLET PO SCH (09:00)
[2020-04-29] MEDS: ENOXAPARIN 30MG/0.3ML SYR SUBCUT SCH (10:17)
[2020-04-29] MEDS ORDERED: SODIUM POLYSTYRENE SULFONATE 15 G/60 ML BOT PO SCH (11:00)
[2020-04-29 12:00] VITALS: BP 158/71
[2020-04-29] MEDS ORDERED: DEXTROSE 50% WATER 50ML SYRINGE IV ONE (15:00)
[2020-04-29] MEDS ORDERED: INSULIN REGULAR (HUMULIN R) 300UNITS/3ML VIAL IV SCH (16:00)
[2020-04-29] MEDS ORDERED: INSULIN REGULAR (HUMULIN R) UD 100 UNITS/ML SYR IV NR (19:00)
[2020-04-29 20:00] VITALS: BP 140/71
[2020-04-29 23:10] VITALS: BP 140/70
[2020-04-30 02:00] VITALS: BP 111/69
[2020-04-30] MEDS: INSULIN LISPRO 100 UNITS/ML SUBCUT SCH ×4 (07:45→21:00)
[2020-04-30 08:00] VITALS: BP 174/79
[2020-04-30] MEDS: AMLODIPINE 10MG TABLET PO SCH (11:00)
[2020-04-30] MEDS: ENOXAPARIN 30MG/0.3ML SYR SUBCUT SCH (11:00)
[2020-04-30] MEDS: BLOOD SUGAR DIAGNOSTIC STRIP TEST SCH ×3 (12:20→21:00)
[2020-04-30 20:00] VITALS: BP 170/81
[2020-05-01] MEDS: BLOOD SUGAR DIAGNOSTIC STRIP TEST SCH ×2 (06:28→21:13)
[2020-05-01 07:45] LABS: BASOPHILS % 0.7 % (0.0-2.0); EOSINOPHILS % 1.2 % (0.0-5.0); LYMPHOCYTES % 12.5 % (20.0-50.0); MEAN CORPUSCULAR HEMOGLOBIN 32.2 pg (28.0-32.0); MEAN CORPUSCULAR VOLUME 96.8 fL (80.0-94.0); MEAN PLATELET VOLUME 8.8 fl (7.4-10.4); MONOCYTES % 8.2 % (2.0-8.0); NEUTROPHILS % 77.4 % (40.0-76.0); PLATELET 122 x1000/uL (130-400)
[2020-05-01] MEDS: INSULIN LISPRO 100 UNITS/ML SUBCUT SCH ×2 (07:50→21:00)
[2020-05-01 08:00] VITALS: BP 152/73
[2020-05-01] MEDS: AMLODIPINE 10MG TABLET PO SCH (09:00)
[2020-05-01] MEDS: ENOXAPARIN 30MG/0.3ML SYR SUBCUT SCH (09:19)
[2020-05-01 20:30] VITALS: BP 157/71
[2020-05-02] MEDS: BLOOD SUGAR DIAGNOSTIC STRIP TEST SCH ×4 (06:56→21:00)
[2020-05-02] MEDS: INSULIN LISPRO 100 UNITS/ML SUBCUT SCH ×4 (06:56→21:00)
[2020-05-02] MEDS: ENOXAPARIN 30MG/0.3ML SYR SUBCUT SCH (09:50)
[2020-05-02] MEDS: AMLODIPINE 10MG TABLET PO SCH (09:50)
[2020-05-02 09:51] VITALS: BP 158/76
[2020-05-02] MEDS ORDERED: LORAZEPAM 2MG/ML CPJ IV PRN (11:15)
[2020-05-02 20:00] VITALS: BP 134/89
[2020-05-03] MEDS: INSULIN LISPRO 100 UNITS/ML SUBCUT SCH ×4 (07:26→21:00)
[2020-05-03] MEDS: BLOOD SUGAR DIAGNOSTIC STRIP TEST SCH ×4 (07:26→21:26)
[2020-05-03 08:00] VITALS: BP 135/75
[2020-05-03] MEDS: AMLODIPINE 10MG TABLET PO SCH (09:05)
[2020-05-03] MEDS: ENOXAPARIN 30MG/0.3ML SYR SUBCUT SCH (09:05)
[2020-05-03 20:00] VITALS: BP 143/64
[2020-05-04] MEDS: BLOOD SUGAR DIAGNOSTIC STRIP TEST SCH ×4 (07:14→21:55)
[2020-05-04 07:38] LABS: BASOPHILS % 1.4 % (0.0-2.0); EOSINOPHILS % 4.1 % (0.0-5.0); HEMATOCRIT. 26.6 % (42.0-52.0); MEAN CORPUSCULAR HEMOGLOBIN 32.5 pg (28.0-32.0); MEAN CORPUSCULAR VOLUME 96.7 fL (80.0-94.0); MEAN PLATELET VOLUME 8.9 fl (7.4-10.4); MONOCYTES % 9.7 % (2.0-8.0); NEUTROPHILS % 69.8 % (40.0-76.0); PLATELET 134 x1000/uL (130-400); RED BLOOD CELL COUNT 2.75 mill/uL (4.7-6.1); RED CELL DISTRIBUTION WIDTH 15.7 % (11.6-14.6)
[2020-05-04] MEDS: INSULIN LISPRO 100 UNITS/ML SUBCUT SCH ×4 (07:50→21:00)
[2020-05-04 08:00] VITALS: BP 145/70
[2020-05-04] MEDS: ENOXAPARIN 30MG/0.3ML SYR SUBCUT SCH (11:39)
[2020-05-04] MEDS: AMLODIPINE 10MG TABLET PO SCH (11:39)
[2020-05-04 20:47] VITALS: BP 95/53
[2020-05-04] MEDS: ACETAMINOPHEN 325MG TABLET PO PRN (22:01)
[2020-05-05] MEDS: INSULIN LISPRO 100 UNITS/ML SUBCUT SCH ×4 (07:50→21:00)
[2020-05-05] MEDS: BLOOD SUGAR DIAGNOSTIC STRIP TEST SCH ×4 (07:55→21:00)
[2020-05-05 08:36] VITALS: BP 147/71
[2020-05-05 08:44] LABS: HEMATOCRIT. 26.8 % (42.0-52.0); HEMOGLOBIN. 8.6 g/dL (14.0-18.0); MEAN CORPUSCULAR HEMOGLOBIN 31.9 pg (28.0-32.0); MEAN CORPUSCULAR VOLUME 99.1 fL (80.0-94.0); MEAN PLATELET VOLUME 8.9 fl (7.4-10.4); PLATELET 176 x1000/uL (130-400); RED BLOOD CELL COUNT 2.71 mill/uL (4.7-6.1); RED CELL DISTRIBUTION WIDTH 16.1 % (11.6-14.6)
[2020-05-05] MEDS: ENOXAPARIN 30MG/0.3ML SYR SUBCUT SCH (10:16)
[2020-05-05] MEDS: ACETAMINOPHEN 325MG TABLET PO PRN ×2 (10:16→21:18)
[2020-05-05] MEDS: AMLODIPINE 10MG TABLET PO SCH (10:17)
[2020-05-05 15:22] LABS: PLATELET ESTIMATE NORMAL
[2020-05-05 20:00] VITALS: BP 139/67
[2020-05-06] MEDS: BLOOD SUGAR DIAGNOSTIC STRIP TEST SCH ×4 (06:50→21:52)
[2020-05-06] MEDS: INSULIN LISPRO 100 UNITS/ML SUBCUT SCH ×4 (07:50→21:00)
[2020-05-06 08:00] VITALS: BP 119/67
[2020-05-06 08:44] LABS: BASOPHILS % 1.2 % (0.0-2.0); EOSINOPHILS % 1.4 % (0.0-5.0); HEMATOCRIT. 27.2 % (42.0-52.0); LYMPHOCYTES % 7.7 % (20.0-50.0); MEAN CORPUSCULAR HEMOGLOBIN 32.5 pg (28.0-32.0); MEAN CORPUSCULAR VOLUME 97.6 fL (80.0-94.0); MEAN PLATELET VOLUME 8.7 fl (7.4-10.4); NEUTROPHILS % 83.7 % (40.0-76.0); PLATELET 200 x1000/uL (130-400); RED BLOOD CELL COUNT 2.78 mill/uL (4.7-6.1)
[2020-05-06] MEDS: AMLODIPINE 10MG TABLET PO SCH (10:25)
[2020-05-06] MEDS: ENOXAPARIN 30MG/0.3ML SYR SUBCUT SCH (10:25)
[2020-05-06 20:00] VITALS: BP 136/70
[2020-05-07] MEDS: BLOOD SUGAR DIAGNOSTIC STRIP TEST SCH ×4 (07:49→21:00)
[2020-05-07] MEDS: INSULIN LISPRO 100 UNITS/ML SUBCUT SCH ×4 (07:50→21:00)
[2020-05-07] MEDS: AMLODIPINE 10MG TABLET PO SCH (09:00)
[2020-05-07 09:02] VITALS: BP 136/67
[2020-05-07] MEDS: ENOXAPARIN 30MG/0.3ML SYR SUBCUT SCH (13:49)
[2020-05-07 19:52] LABS: BASOPHILS % 1.5 % (0.0-2.0); EOSINOPHILS % 2.1 % (0.0-5.0); HEMATOCRIT. 24.3 % (42.0-52.0); HEMOGLOBIN. 8.1 g/dL (14.0-18.0); LYMPHOCYTES % 9.1 % (20.0-50.0); MEAN CORPUSCULAR HEMOGLOBIN 32.3 pg (28.0-32.0); MEAN PLATELET VOLUME 8.5 fl (7.4-10.4); MONOCYTES % 12.7 % (2.0-8.0); NEUTROPHILS % 74.6 % (40.0-76.0); PLATELET 199 x1000/uL (130-400); RED CELL DISTRIBUTION WIDTH 16.1 % (11.6-14.6)
[2020-05-07 20:00] VITALS: BP 135/77
[2020-05-08] MEDS: BLOOD SUGAR DIAGNOSTIC STRIP TEST SCH ×4 (07:20→20:19)
[2020-05-08] MEDS: INSULIN LISPRO 100 UNITS/ML SUBCUT SCH ×4 (07:50→20:19)
[2020-05-08 08:09] VITALS: BP 147/77
[2020-05-08] MEDS: AMLODIPINE 10MG TABLET PO SCH (10:21)
[2020-05-08] MEDS: ENOXAPARIN 30MG/0.3ML SYR SUBCUT SCH (10:23)
[2020-05-08 20:00] VITALS: BP 149/70
[2020-05-09] MEDS: INSULIN LISPRO 100 UNITS/ML SUBCUT SCH ×4 (06:34→21:00)
[2020-05-09] MEDS: BLOOD SUGAR DIAGNOSTIC STRIP TEST SCH ×4 (06:34→20:10)
[2020-05-09 07:03] LABS: BASOPHILS % 1.3 % (0.0-2.0); EOSINOPHILS % 2.4 % (0.0-5.0); HEMATOCRIT. 28.4 % (42.0-52.0); HEMOGLOBIN. 9.3 g/dL (14.0-18.0); LYMPHOCYTES % 12.7 % (20.0-50.0); MEAN CORPUSCULAR VOLUME 97.2 fL (80.0-94.0); MONOCYTES % 12.4 % (2.0-8.0); NEUTROPHILS % 71.2 % (40.0-76.0); PLATELET 268 x1000/uL (130-400); RED BLOOD CELL COUNT 2.92 mill/uL (4.7-6.1); RED CELL DISTRIBUTION WIDTH 16.2 % (11.6-14.6)
[2020-05-09 08:00] VITALS: BP 155/78
[2020-05-09] MEDS: AMLODIPINE 10MG TABLET PO SCH (09:00)
[2020-05-09] MEDS: ENOXAPARIN 30MG/0.3ML SYR SUBCUT SCH (10:14)
[2020-05-09 20:00] VITALS: BP 143/73
[2020-05-10] MEDS: BLOOD SUGAR DIAGNOSTIC STRIP TEST SCH ×4 (05:42→20:34)
[2020-05-10] MEDS: INSULIN LISPRO 100 UNITS/ML SUBCUT SCH ×4 (05:42→20:34)
[2020-05-10 08:00] VITALS: BP 141/63
[2020-05-10] MEDS: AMLODIPINE 10MG TABLET PO SCH (09:58)
[2020-05-10] MEDS: ENOXAPARIN 30MG/0.3ML SYR SUBCUT SCH (09:58)
[2020-05-10 20:00] VITALS: BP 133/66
[2020-05-11] MEDS: BLOOD SUGAR DIAGNOSTIC STRIP TEST SCH ×4 (06:09→21:12)
[2020-05-11] MEDS: INSULIN LISPRO 100 UNITS/ML SUBCUT SCH ×4 (06:10→21:00)
[2020-05-11 08:10] VITALS: BP 159/72
[2020-05-11 09:00] LABS: HEMOGLOBIN. 8.2 g/dL (14.0-18.0); MEAN CORPUSCULAR HEMOGLOBIN 31.5 pg (28.0-32.0); MEAN CORPUSCULAR VOLUME 96.1 fL (80.0-94.0); MEAN PLATELET VOLUME 8.1 fl (7.4-10.4); PLATELET 223 x1000/uL (130-400); RED CELL DISTRIBUTION WIDTH 16.1 % (11.6-14.6)
[2020-05-11] MEDS: AMLODIPINE 10MG TABLET PO SCH (09:00)
[2020-05-11] MEDS: ENOXAPARIN 30MG/0.3ML SYR SUBCUT SCH (10:49)
[2020-05-11] MEDS: FOLIC ACID/VITAMIN B COMP W-C TABLET PO SCH (10:49)
[2020-05-11 20:00] VITALS: BP 160/84
[2020-05-11 22:41] LABS: PLATELET ESTIMATE NORMAL
[2020-05-12] MEDS: BLOOD SUGAR DIAGNOSTIC STRIP TEST SCH ×4 (06:30→21:36)
[2020-05-12 06:35] LABS: HEMATOCRIT. 23.9 % (42.0-52.0); MEAN CORPUSCULAR HEMOGLOBIN 31.9 pg (28.0-32.0); MEAN CORPUSCULAR VOLUME 95.8 fL (80.0-94.0); PLATELET 227 x1000/uL (130-400); RED CELL DISTRIBUTION WIDTH 15.9 % (11.6-14.6)
[2020-05-12] MEDS: INSULIN LISPRO 100 UNITS/ML SUBCUT SCH ×4 (07:50→21:00)
[2020-05-12 08:09] VITALS: BP 161/79
[2020-05-12] MEDS: FOLIC ACID/VITAMIN B COMP W-C TABLET PO SCH (10:04)
[2020-05-12] MEDS: ENOXAPARIN 30MG/0.3ML SYR SUBCUT SCH (10:05)
[2020-05-12] MEDS: AMLODIPINE 10MG TABLET PO SCH (10:05)
[2020-05-12 20:44] VITALS: BP 153/80
[2020-05-12 22:23] LABS: PLATELET ESTIMATE NORMAL
[2020-05-13] MEDS: BLOOD SUGAR DIAGNOSTIC STRIP TEST SCH ×4 (06:59→21:19)
[2020-05-13] MEDS: INSULIN LISPRO 100 UNITS/ML SUBCUT SCH ×4 (07:50→21:00)
[2020-05-13 08:00] VITALS: BP 153/82
[2020-05-13 08:22] LABS: BASOPHILS % 1.3 % (0.0-2.0); EOSINOPHILS % 2.7 % (0.0-5.0); HEMATOCRIT. 25.2 % (42.0-52.0); HEMOGLOBIN. 8.4 g/dL (14.0-18.0); LYMPHOCYTES % 14.5 % (20.0-50.0); MEAN CORPUSCULAR HEMOGLOBIN 31.9 pg (28.0-32.0); MEAN CORPUSCULAR VOLUME 95.3 fL (80.0-94.0); MEAN PLATELET VOLUME 7.9 fl (7.4-10.4); MONOCYTES % 12.3 % (2.0-8.0); NEUTROPHILS % 69.2 % (40.0-76.0); PLATELET 260 x1000/uL (130-400); RED BLOOD CELL COUNT 2.65 mill/uL (4.7-6.1); RED CELL DISTRIBUTION WIDTH 16.1 % (11.6-14.6)
[2020-05-13] MEDS: ENOXAPARIN 30MG/0.3ML SYR SUBCUT SCH (09:36)
[2020-05-13] MEDS: FOLIC ACID/VITAMIN B COMP W-C TABLET PO SCH (09:36)
[2020-05-13] MEDS: AMLODIPINE 10MG TABLET PO SCH (09:37)
[2020-05-13 20:00] VITALS: BP_SYST 106; BP_SYST 159; BP_DIAS 65; BP_DIAS 99
[2020-05-14 06:06] LABS: HEMATOCRIT. 24.1 % (42.0-52.0); HEMOGLOBIN. 8.3 g/dL (14.0-18.0); MEAN CORPUSCULAR HEMOGLOBIN 32.7 pg (28.0-32.0); MEAN CORPUSCULAR VOLUME 95.6 fL (80.0-94.0); MEAN PLATELET VOLUME 7.9 fl (7.4-10.4); PLATELET 273 x1000/uL (130-400); RED BLOOD CELL COUNT 2.53 mill/uL (4.7-6.1)
[2020-05-14] MEDS: BLOOD SUGAR DIAGNOSTIC STRIP TEST SCH ×4 (07:20→21:00)
[2020-05-14] MEDS: INSULIN LISPRO 100 UNITS/ML SUBCUT SCH ×4 (07:50→21:00)
[2020-05-14 08:00] VITALS: BP 173/82
[2020-05-14] MEDS: AMLODIPINE 10MG TABLET PO SCH (09:00)
[2020-05-14] MEDS: ENOXAPARIN 30MG/0.3ML SYR SUBCUT SCH (11:13)
[2020-05-14] MEDS: FOLIC ACID/VITAMIN B COMP W-C TABLET PO SCH (11:14)
[2020-05-14 17:37] LABS: PLATELET ESTIMATE NORMAL
[2020-05-14 20:00] VITALS: BP 158/71
[2020-05-15] MEDS: INSULIN LISPRO 100 UNITS/ML SUBCUT SCH ×4 (07:50→21:00)
[2020-05-15] MEDS: BLOOD SUGAR DIAGNOSTIC STRIP TEST SCH ×4 (07:54→21:00)
[2020-05-15 08:00] VITALS: BP 172/78
[2020-05-15] MEDS: ENOXAPARIN 30MG/0.3ML SYR SUBCUT SCH (08:35)
[2020-05-15] MEDS: FOLIC ACID/VITAMIN B COMP W-C TABLET PO SCH (08:35)
[2020-05-15] MEDS: AMLODIPINE 10MG TABLET PO SCH (08:35)
[2020-05-15 20:00] VITALS: BP 147/75
[2020-05-15] MEDS ORDERED: SODIUM BICARBONATE 8.4% 1 MEQ/ML 50ML SYR IV STA (20:47)
[2020-05-15] MEDS ORDERED: DEXTROSE 50% WATER 50ML SYRINGE IV STA (20:47)
[2020-05-15] MEDS ORDERED: INSULIN REGULAR (HUMULIN R) 300UNITS/3ML VIAL IV NR (21:30)
[2020-05-15] MEDS ORDERED: SODIUM POLYSTYRENE SULFONATE 15 G/60 ML BOT PO NR (22:00)
[2020-05-15] MEDS ORDERED: SODIUM BICARBONATE 8.4% 1 MEQ/ML 50ML SYR IV NR (22:30)
[2020-05-16] MEDS: BLOOD SUGAR DIAGNOSTIC STRIP TEST SCH ×3 (06:14→21:32)
[2020-05-16] MEDS: INSULIN LISPRO 100 UNITS/ML SUBCUT SCH ×3 (07:21→21:00)
[2020-05-16 08:00] VITALS: BP 137/76
[2020-05-16] MEDS: FOLIC ACID/VITAMIN B COMP W-C TABLET PO SCH (09:31)
[2020-05-16] MEDS: AMLODIPINE 10MG TABLET PO SCH (09:31)
[2020-05-16] MEDS: ENOXAPARIN 30MG/0.3ML SYR SUBCUT SCH (09:32)
[2020-05-16 10:55] LABS: HEMATOCRIT. 23.2 % (42.0-52.0); HEMOGLOBIN. 7.9 g/dL (14.0-18.0); MEAN PLATELET VOLUME 7.5 fl (7.4-10.4); PLATELET 265 x1000/uL (130-400); RED BLOOD CELL COUNT 2.47 mill/uL (4.7-6.1); RED CELL DISTRIBUTION WIDTH 15.9 % (11.6-14.6)
[2020-05-16 14:06] LABS: PLATELET ESTIMATE NORMAL
[2020-05-16 21:05] VITALS: BP 150/72
[2020-05-16 22:11] VITALS: BP 150/72
== END 2020-05-16 22:37 | disposition home or self-care (01) | DRG 177 ==
LOC: ER 07:24 → MICUSO 11:14 → 7WST 04-26 03:55 → 6WST 04-28 20:00
PROVIDERS: ADMIT Hospitalist; ATTEND Hospitalist
PROC: 5A1D70Z Performance of Urinary Filtration, Intermittent, Less than 6 Hours Per Day (ICD-10-PCS; principal; 2020-04-25)
PROC: 5A1D70Z Performance of Urinary Filtration, Intermittent, Less than 6 Hours Per Day (ICD-10-PCS; 2020-04-26)
PROC: 5A1D70Z Performance of Urinary Filtration, Intermittent, Less than 6 Hours Per Day (ICD-10-PCS; 2020-04-27)
PROC: 5A1D70Z Performance of Urinary Filtration, Intermittent, Less than 6 Hours Per Day (ICD-10-PCS; 2020-04-29)
PROC: 5A1D70Z Performance of Urinary Filtration, Intermittent, Less than 6 Hours Per Day (ICD-10-PCS; 2020-04-30)
PROC: 5A1D70Z Performance of Urinary Filtration, Intermittent, Less than 6 Hours Per Day (ICD-10-PCS; 2020-05-04)
PROC: 5A1D70Z Performance of Urinary Filtration, Intermittent, Less than 6 Hours Per Day (ICD-10-PCS; 2020-05-07)
PROC: 5A1D70Z Performance of Urinary Filtration, Intermittent, Less than 6 Hours Per Day (ICD-10-PCS; 2020-05-09)
PROC: 5A1D70Z Performance of Urinary Filtration, Intermittent, Less than 6 Hours Per Day (ICD-10-PCS; 2020-05-11)
PROC: 5A1D70Z Performance of Urinary Filtration, Intermittent, Less than 6 Hours Per Day (ICD-10-PCS; 2020-05-15)
DX: U07.1 COVID-19 (principal); I50.33 Acute on chronic diastolic (congestive) heart failure; N18.6 End stage renal disease; G93.40 Encephalopathy, unspecified; I69.354 Hemiplegia and hemiparesis following cerebral infarction affecting left non-dominant side; I13.2 Hypertensive heart and chronic kidney disease with heart failure and with stage 5 chronic kidney disease, or end stage renal disease; E11.22 Type 2 diabetes mellitus with diabetic chronic kidney disease; E87.5 Hyperkalemia; G40.909 Epilepsy, unspecified, not intractable, without status epilepticus; Z99.2 Dependence on renal dialysis; Z79.899 Other long term (current) drug therapy
CPT/HCPCS: 36415; 36600; 71045; 80048; 80053; 80061; 80320; 82375; 82805; 82962; 83036; 84132; 85025; 86705; 86706; 86709; 86803; 87340; 93005; 93970; 94644; 99291; J0360; J1650; J1815; J2060; J3490; J7040; U0003; G0480